=== PATIENT | male | born 1965 | race Caucasian/White ===

== ENCOUNTER 2020-08-03 12:50 | Emergency (ER) | payer OTHER ==
[2020-08-03] MEDS ORDERED: NA CHLORIDE 0.9% 1,000 ML ONE (14:36)
[2020-08-03 14:37] LABS: Absolute Lymphocytes (CBC) 1.5 K/uL (0.7-4.9); Basophils % 0.6 % (0-1.3); Hematocrit 44.4 % (39.6-49.0); Lymphocytes % 15.1 % (15.3-44.8); MPV 8.7 fL (7.6-11.3); RBC Red Blood Cell Count 4.72 M/uL (4.33-5.43)
[2020-08-03 14:39] LABS: Protime INR 1.03
[2020-08-03 15:07] LABS: ALT/SGPT 77 U/L (12-78); AST/SGOT 52 U/L (15-37); Albumin 3.8 g/dL (3.4-5.0); Alkaline Phosphatase 54 U/L (45-117); BUN Blood Urea Nitrogen 15 mg/dL (7-18); Bicarbonate 28 mmol/L (21-32); Bilirubin Direct 0.2 mg/dL (0-0.2); Bilirubin Total 0.4 mg/dL (0.2-1.0); Creatine Phosphokinase 145 U/L (39-308); Glucose Level 102 mg/dL (74-106); Magnesium 2.1 mg/dL (1.8-2.4); NT PRO-BNP 9 pg/mL (<125); Potassium 4.1 mmol/L (3.5-5.1); Protein, Total 7.6 g/dL (6.4-8.2); Sodium Level 141 mmol/L (136-145); Troponin (Emerg Dept Use Only) < 0.02 ng/mL (0.0-0.045)
--- NOTE | 2020-08-03 15:28 | RAD REPORT ---
EXAM DESCRIPTION: CT - Head Brain Wo Cont - 08/03/2020 3:22 pm CLINICAL HISTORY: DIZZINESS Headache, drowsiness COMPARISON: No comparisons TECHNIQUE: All CT scans are performed using dose optimization technique as appropriate and may inclu de automated exposure control or mA/KV adjustment according to patient size. FINDINGS: No intracranial hemorrhage, hydrocephalus or extra-axial fluid collection.No areas of brai n edema or evidence of midline shift. The paranasal sinuses and mastoids are clear. The calvarium is intact. IMPRESSION: No acute intracranial abnormality.
--- NOTE | 2020-08-03 17:49 | ER ---
Nurse's Notes [facility] Name: Wilber Suero Age: 55 yrs Sex: Male : 1965 Arrival Date: 08/03/2020 Time: 12:55 Bed 20 Private MD: Josh Peterson F Diagnosis: Palpitations;Dizziness and giddiness Presentation: 08/03 13:22 Chief complaint: Patient states: Started at 1200 today, felt dizzy then hear racing. ca1 Denies chest pain, states, "but I feel a little flutter on my chest". Denies HX of Afib. Coronavirus screen: Client denies travel out of the [place] in the last 14 days. At this time, the client does not indicate any symptoms associated with coronavirus-19. Ebola Screen: Patient negative for fever greater than or equal to 101.5 degrees Fahrenheit, and additional compatible Ebola Virus Disease symptoms Patient denies exposure to infectious person. Patient denies travel to an Ebola-affected area in the 21 days before illness onset. No symptoms or risks identified at this time. Initial Sepsis Screen: Does the patient meet any 2 criteria? No. Patient's initial sepsis screen is negative. Does the patient have a suspected source of infection? No. Patient's initial sepsis screen is negative. Risk Assessment: Do you want to hurt yourself or someone else? Patient reports no desire to harm self or others. Onset of symptoms was August 03, 2020 at 12:00. 13:22 Method Of Arrival: Wheelchair ca1 13:22 Acuity: MIKIE 2 ca1 Historical: - Allergies: 13:25 No Known Allergies; ca1 - PMHx: 13:25 Hypertension; High Cholesterol; ca1 - PSHx: 13:25 None; ca1 - Immunization history:: Flu vaccine is up to date. - Social history:: Smoking status: Patient denies any tobacco usage or history of. Screenin:26 Abuse screen: Denies threats or abuse. Nutritional screening: No deficits noted. rb3 Tuberculosis screening: No symptoms or risk factors identified. Fall Risk None identified. Assessment: 13:26 General: Appears in no apparent distress. comfortable, Behavior is calm, cooperative, rb3 Reports fatigue for. Pain: Denies pain. Neuro: Level of Consciousness is awake, alert, obeys commands, Oriented to person, place, time, situation, Reports feeling lightheaded. Denies headache. Cardiovascular: Reports lightheadedness, Denies chest pain, shortness of breath, syncope, Patient's skin is warm and dry. Respiratory: Airway is patent Respiratory effort is even, unlabored, Respiratory pattern is regular, symmetrical. GI: No signs and/or symptoms were reported involving the gastrointestinal system. : No signs and/or symptoms were reported regarding the genitourinary system. 14:22 Reassessment: Patient appears in no apparent distress at this time. No changes from rb3 previously documented assessment. 15:21 Reassessment: Patient appears in no apparent distress at this time. Patient and/or rb3 family updated on plan of care and expected duration. Pain level reassessed. Patient is alert, oriented x 3, equal unlabored respirations, skin warm/dry/pink. Patient denies pain at this time. 16:18 Reassessment: Patient appears in no apparent distress at this time. No changes from rb3 previously documented assessment. 17:15 Reassessment: Patient appears in no apparent distress at this time. Patient and/or rb3 family updated on plan of care and expected duration. Pain level reassessed. Patient is alert, oriented x 3, equal unlabored respirations, skin warm/dry/pink. 18:00 Reassessment: Patient appears in no apparent distress at this time. No changes from rb3 previously documented assessment. Vital Signs: 13:22 BP 148 / 70; Pulse 123; Resp 18 S; Temp 98.4(TE); Pulse Ox 97% ; Weight 108.86 kg (R); ca1 Height 5 ft. 9 in. (175.26 cm) (R); Pain 0/10; 14:22 BP 146 / 62; Pulse 98; Resp 20; Pulse Ox 95% ; rb3 15:21 BP 161 / 91; Pulse 102; Resp 18; Pulse Ox 96% ; rb3 16:20 BP 148 / 62; Pulse 101; Resp 17; Pulse Ox 97% ; rb3 17:19 BP 156 / 73; Pulse 95; Resp 18; Pulse Ox 97% ; rb3 18:10 BP 149 / 65; Pulse 91; Resp 17; Pulse Ox 97% ; Pain 0/10; rb3 13:22 Body Mass Index 35.44 (108.86 kg, 175.26 cm) ca1 ED Course: 12:55 Patient arrived in ED. am2 12:56 Josh Peterson MD is Private Physician. am2 13:24 Triage completed. ca1 13:25 Arm band placed on right wrist. ca1 13:26 Patient has correct armband on for positive identification. Bed in low position. Call rb3 light in reach. Side rails up X 1. monitoring manager on. Pulse ox on. NIBP on. 13:27 Whitney Cerda, RN is Primary Nurse. rb3 13:51 Alexis Perez PA is PHCP. cp 13:52 Alexis Bautista MD is Attending Physician. cp 14:06 XRAY Chest (1 view) In Process Unspecified. EDMS 14:15 Inserted saline lock: 20 gauge in right antecubital area, using aseptic technique. rb3 Blood collected. 15:22 CT Head Brain wo Cont In Process Unspecified. EDMS 17:47 Jorden Linn MD is Referral Physician. cp 18:17 No provider procedures requiring assistance completed. IV discontinued, intact, rb3 bleeding controlled, No redness/swelling at site. Pressure dressing applied. Administered Medications: 14:22 Drug: NS 0.9% 1000 ml Route: IV; Rate: 1 bolus; Site: right antecubital; rb3 15:26 Follow up: IV Status: Completed infusion rb3 18:15 Not Given (Patient Refused): Aspirin Chewable Tablet 324 mg PO once; 81 mg tablets x 4 rb3 Outcome: 17:47 Discharge ordered by MD. cp 18:17 Patient left the ED. eb 18:17 Discharged to home ambulatory. rb3 18:17 Condition: stable 18:17 Discharge instructions given to patient, Instructed on discharge instructions, follow rb3 up and referral plans. Demonstrated understanding of instructions, follow-up care, Prescriptions given X none 18:17 Patient left the ED. rb3 Signatures: Dispatcher [employer] EDMS Alexis Perez PA PA cp Ayesha Coronado am2 Laure Alexander Cheryl, RN RN ca1 Whitney Cerda, NOEMY RN rb3 Corrections: (The following items were deleted from the chart) 13:25 13:22 Acuity: MIKIE 3 ca1 ca1 18:32 18:32 Patient left the ED. rb3 rb3
--- NOTE | 2020-08-03 17:49 | EDPHYS ---
Physician Documentation [facility] Name: Wilber Suero Age: 55 yrs Sex: Male : 1965 Arrival Date: 08/03/2020 Time: 12:55 Bed 20 Private MD: Josh Peterson F ED Physician Alexis Bautista HPI: 08/03 14:20 This 55 yrs old Male presents to ER via Wheelchair with complaints of cp lightheaded, heart racing. 14:20 The patient presents with a history of heart racing. cp 14:20 Context: The symptoms occur with light activity. Onset: The symptoms/episode cp began/occurred today. Duration: The patient or guardian reports a single episode, improving. Associated signs and symptoms: Pertinent positives: lightheadedness, dizziness, Pertinent negatives: chest pain, fever, SOB, syncope, near-syncope, abdominal pain. Severity of symptoms: in the emergency department the symptoms have improved mildly. 14:20 Patient reports he was doing light work around home when he felt lightheaded and dizzy, cp felt heart racing without pain. Patient denies family history of NH. Historical: - Allergies: 13:25 No Known Allergies; ca1 - PMHx: 13:25 Hypertension; High Cholesterol; ca1 - PSHx: 13:25 None; ca1 - Immunization history:: Flu vaccine is up to date. - Social history:: Smoking status: Patient denies any tobacco usage or history of. ROS: 14:25 Constitutional: Negative for body aches, chills, fever, poor PO intake. cp 14:25 Eyes: Negative for injury, pain, redness, and discharge. cp 14:25 Cardiovascular: Positive for palpitations, Negative for chest pain, edema. 14:25 Respiratory: Negative for cough, dyspnea on exertion, shortness of breath, wheezing. 14:25 Abdomen/GI: Negative for abdominal pain, nausea, vomiting, and diarrhea, black/tarry stool, rectal bleeding. 14:25 Back: Negative for pain at rest, pain with movement. 14:25 Neuro: Positive for dizziness, Negative for altered mental status, headache, syncope, weakness. 14:25 All other systems are negative. Exam: 13:35 ECG was reviewed by the Attending Physician. cp 14:30 Constitutional: The patient appears in no acute distress, alert, awake, cp non-diaphoretic, non-toxic, well developed, well nourished, obese. 14:30 Head/Face: Normocephalic, atraumatic. cp 14:30 Eyes: Periorbital structures: appear normal, Conjunctiva: normal, no exudate, no injection, Sclera: no appreciated abnormality, Lids and lashes: appear normal, bilaterally. 14:30 ENT: External ear(s): are unremarkable, Nose: is normal, Posterior pharynx: Airway: no evidence of obstruction, patent. 14:30 Neck: ROM/movement: is normal, is supple, without pain, no range of motions limitations. 14:30 Chest/axilla: Inspection: normal, Palpation: is normal, no crepitus, no tenderness. cp 14:30 Cardiovascular: Rate: tachycardic, Rhythm: regular, Heart sounds: murmur, not cp appreciated, Edema: is not appreciated, JVD: is not appreciated. 14:30 Respiratory: the patient does not display signs of respiratory distress, Respirations: normal, no use of accessory muscles, no retractions, labored breathing, is not present, Breath sounds: are clear throughout, no decreased breath sounds, no stridor, no wheezing. 14:30 Abdomen/GI: Inspection: abdomen appears normal, Bowel sounds: active, all quadrants, Palpation: abdomen is soft and non-tender, in all quadrants, rebound tenderness, is not appreciated, voluntary guarding, is not appreciated, involuntary guarding, is not appreciated. 14:30 Back: pain, is absent, ROM is normal. 14:30 Neuro: Orientation: to person, place \T\ time. Mentation: is normal, Cerebellar function: is grossly normal, Motor: moves all fours, strength is normal, Sensation: is normal. Vital Signs: 13:22 BP 148 / 70; Pulse 123; Resp 18 S; Temp 98.4(TE); Pulse Ox 97% ; Weight 108.86 kg (R); ca1 Height 5 ft. 9 in. (175.26 cm) (R); Pain 0/10; 14:22 BP 146 / 62; Pulse 98; Resp 20; Pulse Ox 95% ; rb3 15:21 BP 161 / 91; Pulse 102; Resp 18; Pulse Ox 96% ; rb3 16:20 BP 148 / 62; Pulse 101; Resp 17; Pulse Ox 97% ; rb3 17:19 BP 156 / 73; Pulse 95; Resp 18; Pulse Ox 97% ; rb3 18:10 BP 149 / 65; Pulse 91; Resp 17; Pulse Ox 97% ; Pain 0/10; rb3 13:22 Body Mass Index 35.44 (108.86 kg, 175.26 cm) ca1 MDM: 13:53 Patient medically screened. eliane 17:45 Data reviewed: vital signs, nurses notes, lab test result(s), EKG, radiologic studies, cp CT scan, plain films. 17:45 Test interpretation: by ED physician or midlevel provider: ECG, plain radiologic cp studies. Counseling: I had a detailed discussion with the patient and/or guardian regarding: the historical points, exam findings, and any diagnostic results supporting the discharge/admit diagnosis, the presence of at least one elevated blood pressure reading (>120/80) during this emergency department visit, radiology results, the need for outpatient follow up, for definitive care. Response to treatment: the patient's symptoms have markedly improved after treatment, VSS. Patient reports symptoms improved. Discussed observing in hospital, but patient requesting discharge to home. Initial and repeat troponin negative and patient denies any chest chest pain. 08/03 14:02 Order name: Basic Metabolic Panel; Complete Time: 15:42 cp 08/03 14:02 Order name: CBC with Diff; Complete Time: 15:02 cp 08/03 15:03 Interpretation: Normal except: ANITA% 75.0; LYM% 15.1. 08/03 14:02 Order name: LFT's; Complete Time: 15:42 cp 08/03 14:02 Order name: Magnesium; Complete Time: 15:42 cp 08/03 14:02 Order name: NT PRO-BNP; Complete Time: 15:42 cp 08/03 14:02 Order name: PT-INR; Complete Time: 15:02 cp 08/03 14:02 Order name: Troponin (emerg Dept Use Only); Complete Time: 15:42 cp 08/03 14:02 Order name: XRAY Chest (1 view) 08/03 14:02 Order name: CK; Complete Time: 15:42 cp 08/03 14:43 Order name: Urine Dipstick--Ancillary (enter results) 08/03 15:04 Order name: CT Head Brain wo Cont; Complete Time: 15:42 cp 08/03 16:32 Order name: Troponin I: redraw \T\1700 cp 08/03 14:02 Order name: EKG; Complete Time: 14:03 cp 08/03 14:02 Order name: Cardiac monitoring; Complete Time: 14:22 cp 08/03 14:02 Order name: EKG - Nurse/Tech; Complete Time: 14:23 cp 08/03 14:02 Order name: IV Saline Lock; Complete Time: 14:23 cp 08/03 14:02 Order name: Labs collected and sent; Complete Time: 14:23 cp 08/03 14:02 Order name: O2 Per Protocol; Complete Time: 14:23 cp 08/03 14:02 Order name: O2 Sat Monitoring; Complete Time: 14:23 cp 08/03 14:02 Order name: Urine Dipstick-Ancillary (obtain specimen); Complete Time: 14:45 cp EC:35 Rate is 111 beats/min. Rhythm is regular. FL interval is normal. QRS interval is cp normal. QT interval is normal. Interpreted by me. Reviewed by me. Administered Medications: 14:22 Drug: NS 0.9% 1000 ml Route: IV; Rate: 1 bolus; Site: right antecubital; rb3 15:26 Follow up: IV Status: Completed infusion rb3 18:15 Not Given (Patient Refused): Aspirin Chewable Tablet 324 mg PO once; 81 mg tablets x 4 rb3 Disposition: 08/04 01:23 Co-signature as Attending Physician, Alexis Bautista MD I agree with the assessment and [facility] plan of care. Disposition: 08/03/20 17:47 Discharged to Home. Impression: Palpitations, Dizziness and giddiness. - Condition is Stable. - Discharge Instructions: Dizziness, Holter Monitoring, Palpitations, Aspirin and Your Heart. - Medication Reconciliation Form, Thank You Letter, Antibiotic Education, Prescription Opioid Use form. - Follow up: Jorden Linn MD; When: 2 - 3 days; Reason: Recheck today's complaints. - Problem is new. - Symptoms have improved. Signatures: Dispatcher [employer] Alexis Dodson MD MD cha Page, Corey, PA PA cp Botello, Elizabeth eb Acob, Cheryl RN RN ca1 Cerda, Whitney, RN RN rb3 Corrections: (The following items were deleted from the chart) 08/03 17:49 17:47 08/03/2020 17:47 Discharged to Home. Impression: Palpitations. Condition is cp Stable. Forms are Medication Reconciliation Form, Thank You Letter, Antibiotic Education, Prescription Opioid Use. Follow up: Jorden Kotharii; When: 2 - 3 days; Reason: Recheck today's complaints. Problem is new. Symptoms have improved. cp 18:17 17:49 08/03/2020 17:47 Discharged to Home. Impression: Palpitations; Dizziness and eb giddiness. Condition is Stable. Discharge Instructions: Palpitations, Aspirin and Your Heart, Dizziness, Holter Monitoring. Forms are Medication Reconciliation Form, Thank You Letter, Antibiotic Education, Prescription Opioid Use. Follow up: Jorden Baradhi; When: 2 - 3 days; Reason: Recheck today's complaints. Problem is new. Symptoms have improved. cp 18:32 18:17 08/03/2020 17:47 Discharged to Home. Impression: Palpitations; Dizziness and rb3 giddiness. Condition is Stable. Discharge Instructions: Palpitations, Aspirin and Your Heart, Dizziness, Holter Monitoring. Forms are Medication Reconciliation Form, Thank You Letter, Antibiotic Education, Prescription Opioid Use. Follow up: Jodren Kotharii; When: 2 - 3 days; Reason: Recheck today's complaints. Problem is new. Symptoms have improved. eb
[2020-08-03] MEDS ORDERED: ASPIRIN 81 MG CHEWABLE TABLET ONE (18:27)
[2020-08-03 18:29] VITALS: TEMP 98.4
[2020-08-03 18:46] VITALS: O2SAT 97
[2020-08-03 18:49] VITALS: BP 149/65
[2020-08-03 20:08] LABS: Urine Blood NEGATIVE (NEG); Urine Glucose NEGATIVE (NEG); Urine Protein NEGATIVE (NEG); Urine Specific Gravity 1.025 (1.005-1.030)
== END 2020-08-03 18:32 | disposition home or self-care (01) ==
LOC: ER 12:50
DX: R00.2 Palpitations (principal); I10 Essential (primary) hypertension
CPT/HCPCS: 93005; 85025; 80048; 36415; 83735; 82550; 85610; 80076; 81003; 84484 ×2; 83880; 70450; 71045; 96360; 99284; J7030